=== PATIENT | female | born 1960 | race Caucasian/White ===

== ENCOUNTER 2021-09-18 17:21 | Emergency (ER) | payer MEDICARE, OTHER ==
[~2021-09-18] VITALS: Ht 167.6 cm; Wt 90.7 kg
[2021-09-18] MEDS ORDERED: MORPHINE SULFATE 4 MG/1 ML DISP.SYRIN IV ONE (17:45)
[2021-09-18] MEDS ORDERED: ONDANSETRON 4 MG/2 ML VIAL IV ONE (17:45)
--- NOTE | 2021-09-18 17:45 | NUR ---
EREN BERNAL TOOK PATIENT for XRAY
[2021-09-18] MEDS ORDERED: KETOROLAC TROMETHAMINE 15 MG INJ IM ONE (18:15)
[2021-09-18] MEDS ORDERED: ACET-2154 PO (18:18)
[2021-09-18] MEDS ORDERED: IBUP-1953 PO (18:18)
[2021-09-18] MEDS ORDERED: KETOROLAC TROMETHAMINE 15 MG INJ ONE (18:20)
--- NOTE | 2021-09-18 18:32 | NUR ---
MEDICATED FOR PAIN PER MD ORDER - LT DELTOID IM, TORADOL 15MG.
--- NOTE | 2021-09-18 18:40 | NUR ---
Patient discharged to home in stable condition. Written and verbal after care instructions given. Patient verbalizes understanding of instructions. Stressed follow up or return to ER for worsening s/s.
[2021-09-18 18:41] VITALS: BP 150/85
== END 2021-09-18 18:42 | disposition home or self-care (01) ==
LOC: ER 17:24
DX: S80.12XA Contusion of left lower leg, initial encounter (principal); M79.605 Pain in left leg; W01.0XXA Fall on same level from slipping, tripping and stumbling without subsequent striking against object, initial encounter; Y92.513 Shop (commercial) as the place of occurrence of the external cause; I11.9 Hypertensive heart disease without heart failure
CPT/HCPCS: 71045; 72190; 73502; 73551; 73564; 73590; 73610; 73630; 96372; 99284; J1885; A4663